=== PATIENT | female | born 1965 | race Caucasian/White ===

== ENCOUNTER 2017-01-04 10:50 | Emergency (ER) | payer MEDICARE, OTHER | END 2017-01-04 11:50 | disposition home or self-care (01) | LOC: ER1 10:50 | DX: H00.022 Hordeolum internum right lower eyelid (principal); F32.9 Major depressive disorder, single episode, unspecified; Z88.0 Allergy status to penicillin; F17.210 Nicotine dependence, cigarettes, uncomplicated; Z79.899 Other long term (current) drug therapy | CPT/HCPCS: 99283 ==

== ENCOUNTER 2020-10-13 00:25 | Emergency (ER) | payer OTHER ==
[~2020-10-13 00:25] MED LIST: ACTOS TAB 15MG15 MG PO; BENTYL 20MG TAB20 MG PO; HALDOL 5 MG TAB5 MG PO; LITHIUM CARBON450 MG PO; LODINE CAP 300300 MG PO; LOPRESSOR 25 MG25 MG PO; MACROBID 100 M100 MG PO; SEROQUEL300 MG PO; SEROQUEL400 MG PO; WELLBUTRIN XL300 M1 PO; ZITHROMAX250 MG PO; ZOCOR10 MG PO; ZOFRAN ODT 4 MG4 MG PO
[2020-10-13 02:17] LABS: HEMOGLOBIN 13.2 gm/dl (12.3-15.3); RED BLOOD COUNT 4.28 M/UL (4.00-5.10); WHITE BLOOD COUNT 8.4 K/UL (4.5-11.0)
[2020-10-13 02:39] LABS: BUN/CREATININE RATIO 22 (0-10)
== END 2020-10-13 07:45 | disposition home or self-care (01) ==
LOC: ER1 00:25
PROVIDERS: Physician Assistant
DX: R41.82 Altered mental status, unspecified (principal); R44.0 Auditory hallucinations; Z20.822 Contact with and (suspected) exposure to COVID-19; E11.9 Type 2 diabetes mellitus without complications; I10 Essential (primary) hypertension; F17.210 Nicotine dependence, cigarettes, uncomplicated; Z88.0 Allergy status to penicillin; Z79.84 Long term (current) use of oral hypoglycemic drugs; Z86.73 Personal history of transient ischemic attack (TIA), and cerebral infarction without residual deficits
CPT/HCPCS: 0240U; 36415; 70450; 71045; 73610; 73630; 80053; 80307; 81001; 82140; 82550; 82553; 83605; 83690; 83735; 83874; 83880; 84484; 84703; 85025; 85610; 85652; 85730; 86140; 87040; 87086; 93005; 99285; G0480

== ENCOUNTER → 2021-08-16 | Outpatient (CLI) | payer OTHER | LOC: RAD 14:29 | DX: M54.2 Cervicalgia (principal); M17.9 Osteoarthritis of knee, unspecified; M47.814 Spondylosis without myelopathy or radiculopathy, thoracic region | CPT/HCPCS: 72050; 72072 ==

== ENCOUNTER 2022-01-14 14:14 | Emergency (ER) | payer OTHER | END 2022-01-14 16:23 | disposition home or self-care (01) | LOC: ER1 14:14 | DX: Z13.9 Encounter for screening, unspecified (principal); E11.9 Type 2 diabetes mellitus without complications; I10 Essential (primary) hypertension; F17.210 Nicotine dependence, cigarettes, uncomplicated; Z88.0 Allergy status to penicillin | CPT/HCPCS: 81001; 84703; 99283 ==

== ENCOUNTER 2022-03-22 11:20 | Emergency (ER) | payer OTHER ==
[2022-03-22 11:58] LABS: HEMOGLOBIN 15.3 gm/dl (12.3-15.3); RED BLOOD COUNT 5.04 M/UL (4.00-5.10); WHITE BLOOD COUNT 5.9 K/UL (4.5-11.0)
== END 2022-03-22 15:15 | disposition home or self-care (01) ==
LOC: ER1 11:20
PROVIDERS: Family Medicine
DX: T59.811A Toxic effect of smoke, accidental (unintentional), initial encounter (principal); S80.212A Abrasion, left knee, initial encounter; E11.65 Type 2 diabetes mellitus with hyperglycemia; F17.200 Nicotine dependence, unspecified, uncomplicated; R51.9 Headache, unspecified; M54.2 Cervicalgia; Z91.14 Patient's other noncompliance with medication regimen; Z86.59 Personal history of other mental and behavioral disorders; Z88.0 Allergy status to penicillin; W19.XXXA Unspecified fall, initial encounter
CPT/HCPCS: 36600; 70450; 71045; 72125; 73562; 80053; 80307; 81001; 82009; 82550; 82553; 82805; 83735; 84484; 85025; 93005; 94664; 94760; 96374; 99285; G0480; J2930